=== PATIENT | female | born 1945 | race Caucasian/White ===

== ENCOUNTER 2019-11-09 15:05 | Emergency (ER) | payer MEDICARE, OTHER, SELFPAY ==
[2019-11-09] VITALS (13 sets, daily range): BP systolic 117–191; BP diastolic 8–96; PULSE 70–100; RESP 14–30; TEMP 36.7; O2SAT 95–100
--- NOTE | 2019-11-09 15:14 | DI.RAD.S_ITS ---
PROCEDURE: XR CHEST 1V INDICATIONS: chest pain TECHNIQUE: One view of the chest was acquired. COMPARISON: [facility], , CHEST 2 VIEW, 09/11/2016, 13:55. FINDINGS: Surgical changes and devices: None. Lungs and pleura: Lungs are clear. No pleural effusions or pneumothorax. Mediastinum: Mediastinal contours appear normal. Heart size is normal. Bones and chest wall: No suspicious bony lesions. Overlying soft tissues appear unremarkable. IMPRESSION: No acute cardiopulmonary abnormalities or focal airspace disease. Dictated by: Andrei Velasco M.D. on 11/09/2019 at 15:59 Approved by: Andrei Velasco M.D. on 11/09/2019 at 16:00
--- NOTE | 2019-11-09 15:29 | ED.CHESTPAIN ---
HPI - Chest Pain General Chief Complaint: Chest Pain Stated Complaint: SOB, Chest Pain Time Seen by Provider: 11/09/19 15:09 Source: patient Mode of arrival: Ambulatory Limitations: no limitations History of Present Illness HPI narrative: 74-year-old female. Otherwise healthy. Does not take any medications. Approximately 4-5 days ago started noticing dyspnea on exertion and a sharp retrosternal chest pain on exertion. Chest pain does not seem to be associated with palpation or movement or eating. She also noticed that climbing stairs in her house she has become short of breath. No swelling in her lower extremities. Contact her primary provider who advised to come the emergency department. Related Data Previous Rx's Medication Instructions Recorded nitroglycerin 0.4 mg SL Q5M PRN #30 tab 11/09/19 Allergies Allergy/AdvReac Type Severity Reaction Status Date / Time No Known Drug Allergies Allergy Verified 11/09/19 15:17 Review of Systems Constitutional Constitutional: Denies fever(s) and Denies headache(s) ENT Ears, Nose, Mouth, and Throat: Denies headache(s) Cardiovascular Cardiovascular: Reports chest pain, Denies leg edema, Denies dyspnea and Reports dyspnea on exertion Respiratory Respiratory: Denies dyspnea and Reports dyspnea on exertion Gastrointestinal Gastrointestinal: Reports abdominal pain, Denies nausea and Denies vomiting Genitourinary Genitourinary: Denies dysuria and Denies vaginal discharge Musculoskeletal Musculoskeletal: Denies myalgias and Denies arthralgias Integumentary/Breasts Skin/Breast: Denies lesions and Denies rash Neurologic Neurologic: Denies behavioral changes and Denies headache(s) Psychiatric Psychiatric: Denies behavioral changes Hematologic/Lymphatic Hematologic/Lymphatic: Denies easy bleeding and Denies easy bruising Patient History Medical History Pre-syncope (Inactive) Social History Smoking Status: Former smoker Smoking Status: Former smoker alcohol intake frequency: 0-2 drinks per day Substance Use Type: does not use Exam Initial Vital Signs Initial Vital Signs: Vital Signs Temperature 98.1 F 11/09/19 15:14 Pulse Rate 80 11/09/19 15:14 Respiratory Rate 14 11/09/19 15:14 Blood Pressure 191/96 H 11/09/19 15:14 Pulse Oximetry 98 11/09/19 15:14 Const General: cooperative and comfortable Limitations: mental status not altered Resp Effort & Inspection: normal respiratory effort Auscultation: clear to auscultation bilaterally Cardio Rate: regular rate Rhythm: regular rhythm GI Inspection: non-distended Palpation: soft, No firm and No tender Skin Lesions: no lesions Rashes: no rashes Neuro General: alert, awake and oriented x3 Cognition: normal cognition Speech: speech normal Gait: normal gait Extrem General: normal to inspection and capillary refill normal Psych Appearance: grossly normal and well kempt Scores HEART Score Heart Score history: Moderately Suspicious Heart Score EKG: Normal Heart Score Age: > or = 65 years old Heart Score risk factors: No known risk factors Heart Score troponin: < or = to normal limit Heart Score Total: 3 Course Orders Ordered: ED Orders 11/09/19 15:14 XR chest 1V Stat EKG-12 Lead Stat 11/09/19 15:21 Complete Blood Count AUTO DIFF Stat Comprehensive Metabolic Panel Stat Lipase Stat Partial Thromboplastin Time Stat Prothrombin Time INR Stat Troponin & CK Cardiac Panel Stat 11/09/19 17:22 Troponin I Stat Nitroglycerin (Nitrostat) 0.4 mg SL [id number] PRN PRN Reason: Chest Pain Last Admin: 11/09/19 15:42 Dose: 0.4 mg Documented by: RACQUEL Discontinued Medications Aspirin (Aspirin Ec) 243 mg PO NOW ONE Stop: 11/09/19 15:19 Last Admin: 11/09/19 15:42 Dose: 243 mg Documented by: RACQUEL Vital Signs Vital signs: Vital Signs - 8 hr 11/09/19 15:14 11/09/19 15:16 11/09/19 15:42 Temperature 98.1 F Pulse Rate 80 81 78 Respiratory Rate 14 16 Blood Pressure 191/96 H 148/78 H Blood Pressure [Right Arm] 165/95 H Pulse Oximetry 98 99 11/09/19 15:45 11/09/19 15:46 11/09/19 15:48 Temperature Pulse Rate 100 H 100 H 95 H Respiratory Rate 23 16 15 Blood Pressure Blood Pressure [Right Arm] 132/86 138/88 132/8 L Pulse Oximetry 96 97 97 11/09/19 16:00 11/09/19 16:15 11/09/19 16:31 Temperature Pulse Rate 82 78 71 Respiratory Rate 16 16 16 Blood Pressure Blood Pressure [Right Arm] 123/73 132/70 135/84 Pulse Oximetry 95 98 100 11/09/19 16:45 11/09/19 17:00 11/09/19 17:16 Temperature Pulse Rate 74 76 76 Respiratory Rate 30 H 28 H 16 Blood Pressure Blood Pressure [Right Arm] 127/79 117/81 136/70 Pulse Oximetry 98 96 MDM - Chest Pain Lab Data Attestation: I reviewed the patient's lab results. Result diagrams: 11/09/19 15:21 11/09/19 15:21 Labs: Lab Results 11/09/19 11/09/19 11/09/19 Range/Units 15:21 15:21 15:21 WBC 8.3 (4.5-11.0) X10^3/uL RBC 4.44 (4.0-5.2) X10^6/uL Hgb 14.2 (12.0-16.0) g/dL Hct 41.9 (36-46) % MCV 94.3 (80-100) fL MCH 31.9 (26-34) PG MCHC 33.8 (30-36) % RDW 13.5 (11.6-14.8) % Plt Count 288 (150-400) X10^3/uL Neut % (Auto) 65.2 (50-75) % Lymph % (Auto) 27.1 (25-40) % Latimer % (Auto) 6.8 (3-14) % Eos % (Auto) 0.6 L (2-4) % Baso % (Auto) 0.3 (0-2) % Neut # (Auto) 5400 (3918-7929) /uL Lymph # (Auto) 2300 (1055-6477) /uL Latimer # (Auto) 600 (0-900) /uL Eos # (Auto) 0 (0-450) /uL Baso # (Auto) 0 (0-100) /uL PT 11.6 (10.1-12.7) SECONDS INR 1.0 (0.9-1.3) APTT 31 (26.4-36.2) SECONDS Sodium 137 (137-145) mmol/L Potassium 4.2 (3.4-5.1) mmol/L Chloride 101 (98-107) mmol/L Carbon Dioxide 27 (22-32) mmol/L BUN 11 (7-17) mg/dL Creatinine 0.60 (0.52-1.04) mg/dL Estimated GFR > 60.0 (>60) mL/min BUN/Creatinine Ratio 18.3 (6-22) Glucose 100 (80-110) mg/dL Calcium 10.1 (8.4-10.2) mg/dL Total Bilirubin 0.5 (0.2-1.3) mg/dL AST 29 (14-36) IU/L ALT 23 (<35) IU/L Alkaline Phosphatase 88 (38-126) U/L Total Creatine Kinase 75 (30-135) U/L CK-MB (CK-2) TNP CK-MB (CK-2) Rel Index TNP Troponin I < 0.012 (0.01-0.034) ng/mL Total Protein 8.1 (6.3-8.2) g/dL Albumin 4.8 (3.5-5.0) g/dL Globulin 3.3 (1.7-4.1) g/dL Albumin/Globulin Ratio 1.5 (1.0-2.8) Lipase 54 (23-300) U/L 11/09/19 Range/Units 17:22 WBC (4.5-11.0) X10^3/uL RBC (4.0-5.2) X10^6/uL Hgb (12.0-16.0) g/dL Hct (36-46) % MCV (80-100) fL MCH (26-34) PG MCHC (30-36) % RDW (11.6-14.8) % Plt Count (150-400) X10^3/uL Neut % (Auto) (50-75) % Lymph % (Auto) (25-40) % Latimer % (Auto) (3-14) % Eos % (Auto) (2-4) % Baso % (Auto) (0-2) % Neut # (Auto) (6323-1996) /uL Lymph # (Auto) (4124-8855) /uL Latimer # (Auto) (0-900) /uL Eos # (Auto) (0-450) /uL Baso # (Auto) (0-100) /uL PT (10.1-12.7) SECONDS INR (0.9-1.3) APTT (26.4-36.2) SECONDS Sodium (137-145) mmol/L Potassium (3.4-5.1) mmol/L Chloride (98-107) mmol/L Carbon Dioxide (22-32) mmol/L BUN (7-17) mg/dL Creatinine (0.52-1.04) mg/dL Estimated GFR (>60) mL/min BUN/Creatinine Ratio (6-22) Glucose (80-110) mg/dL Calcium (8.4-10.2) mg/dL Total Bilirubin (0.2-1.3) mg/dL AST (14-36) IU/L ALT (<35) IU/L Alkaline Phosphatase (38-126) U/L Total Creatine Kinase (30-135) U/L CK-MB (CK-2) CK-MB (CK-2) Rel Index Troponin I < 0.012 (0.01-0.034) ng/mL Total Protein (6.3-8.2) g/dL Albumin (3.5-5.0) g/dL Globulin (1.7-4.1) g/dL Albumin/Globulin Ratio (1.0-2.8) Lipase (23-300) U/L Imaging Data Chest x-ray: Radiologist's Impression: [address] [address] XRay Report Signed Patient: Patt Clay R#: [id number] : 7Acct:[id number] Age/Sex: 74 / FDate of Service: 11/09/19 Loc: ED Accession Number: [id number] Procedure: XR chest 1V Ordering Provider: Jese Jenkins D.O. PROCEDURE: XR CHEST 1V INDICATIONS: chest pain TECHNIQUE: One view of the chest was acquired. COMPARISON: [facility], , CHEST 2 VIEW, 09/11/2016, 13:55. FINDINGS: Surgical changes and devices: None. Lungs and pleura: Lungs are clear. No pleural effusions or pneumothorax. Mediastinum: Mediastinal contours appear normal. Heart size is normal. Bones and chest wall: No suspicious bony lesions. Overlying soft tissues appear unremarkable. IMPRESSION: No acute cardiopulmonary abnormalities or focal airspace disease. Dictated by: Andrei Velasco M.D. on 11/09/2019 at 15:59 Approved by: Andrei Velasco M.D. on 11/09/2019 at 16:00 ECG Data Attestation: I personally reviewed and interpreted this ECG as follows: Prior ECG tracings: not available for review Interpretation: Sinus rhythm Ventricular rate is 79 Incomplete right bundle-branch block Normal QRS Normal QTC No ST T wave changes MDM Narrative Medical decision making narrative: Nonspecific changes on the EKG, chest x-ray is negative. Low risk heart score. Patient's medical record shows that Dr. Samuel is her primary provider however I called him and he stated that he is not seen her. He does know her . I was able to talk with the office and schedule the patient for a follow-up at 0200 hours this Friday. They can discuss stress testing. I did discuss this with the patient. I did discuss risks and benefits. Patient would like to go home. We did discuss return precautions. Will send home with nitroglycerin. She expressed understanding and agreement plan. Discharge Plan Departure Patient Disposition: Home Clinical Impression: Chest pain Qualifiers: Chest pain type: unspecified Qualified Code(s): R07.9 - Chest pain, unspecified Instructions: DI for Angina Activity Restrictions/Additional Instructions: You have a follow-up this FridayNovember 12 at 2PM hours at the [facility]. Their phone numbers [phone]. This appointment is with Dr. Samuel. Until then you have no restrictions on your activities except avoiding activities that make her symptoms worse. Return to the emergency department for any new or worsening symptoms Prescriptions: New nitroglycerin 0.4 mg tablet, sublingual 0.4 mg SL Q5M PRN (Reason: chest pain) Qty: 30 RF: 0 Referrals: Bj Samuel MD [Primary Care Provider] -
[2019-11-09 15:33] LABS: Add Manual Diff / Slide Review NO; Basophils Absolute Auto 0 /uL (0-100); Basophils Percent Auto 0.3 % (0-2); Eosinophils Absolute Auto 0 /uL (0-450); Eosinophils Percent Auto 0.6 % (2-4); Hematocrit 41.9 % (36-46); Hemoglobin 14.2 g/dL (12.0-16.0); Lymphocytes Absolute Auto 2300 /uL (1100-4500); Lymphocytes Percent Auto 27.1 % (25-40); Mean Corpuscular HGB Conc 33.8 % (30-36); Mean Corpuscular Hemoglobin 31.9 PG (26-34); Mean Corpuscular Volume 94.3 fL (80-100); Monocytes Absolute Auto 600 /uL (0-900); Monocytes Percent Auto 6.8 % (3-14); Neutrophils Absolute Auto 5400 /uL (1500-7000); Neutrophils Percent Auto 65.2 % (50-75); Platelet Count 288 X10^3/uL (150-400); Red Blood Cell Count 4.44 X10^6/uL (4.0-5.2); Red Cell Distribution Width 13.5 % (11.6-14.8); White Blood Cell Count 8.3 X10^3/uL (4.5-11.0)
[2019-11-09 15:40] LABS: Prothrombin Time 11.6 SECONDS (10.1-12.7)
[2019-11-09] MEDS: NITROGLYCERIN 0.4 MG SL TAB SL (15:42)
[2019-11-09] MEDS: ASPIRIN EC 81 MG TABLET 243 MG PO (15:42)
[2019-11-09 15:43] LABS: PTT Partial Thromboplastin Tim 31 SECONDS (26.4-36.2)
[2019-11-09 15:44] LABS: Alanine Aminotransferase 23 IU/L (<35); Albumin 4.8 g/dL (3.5-5.0); Albumin Globulin Ratio 1.5 (1.0-2.8); Alkaline Phosphatase 88 U/L (38-126); Aspartate Aminotransferase 29 IU/L (14-36); BUN Creatinine Ratio 18.3 (6-22); Bilirubin Total 0.5 mg/dL (0.2-1.3); Blood Urea Nitrogen 11 mg/dL (7-17); Calcium 10.1 mg/dL (8.4-10.2); Carbon Dioxide 27 mmol/L (22-32); Chloride 101 mmol/L (98-107); Creatine Kinase 75 U/L (30-135); Estimated Glomerular Filt Rate > 60.0 mL/min (>60); Globulin 3.3 g/dL (1.7-4.1); Glucose 100 mg/dL (80-110); HEMOLYSIS < 15 (0-50); Lipase 54 U/L (23-300); Potassium 4.2 mmol/L (3.4-5.1); Sodium 137 mmol/L (137-145); Total Protein 8.1 g/dL (6.3-8.2)
--- NOTE | 2019-11-09 15:48 | PC.NURSE ---
no changes with substernal pinching, but now with headache.
[2019-11-09 15:57] LABS: Troponin I < 0.012 ng/mL (0.01-0.034)
--- NOTE | 2019-11-09 17:24 | PC.NURSE ---
for repeat trop. pain free at this time
[2019-11-09 17:57] LABS: Troponin I < 0.012 ng/mL (0.01-0.034)
== END 2019-11-09 18:25 | disposition home or self-care (01) ==
PROVIDERS: Emergency Provider Emergency Medicine; PCP Family Medicine; Referring Provider Family Medicine
DX: R07.9 Chest pain, unspecified (principal); R06.02 Shortness of breath
CPT/HCPCS: 36415; 71045; 80053; 82550; 83690; 84484; 85025; 85610; 85730; 93005; 99284; 99285

== ENCOUNTER → 2020-06-01 13:37 | Outpatient (CLI) | payer MEDICARE, OTHER, SELFPAY ==
--- NOTE | 2020-06-01 | DI.RAD.S_ITS ---
PROCEDURE: XR FOOT RT MIN 3V INDICATIONS: RIGHT FOOT PAIN TECHNIQUE: 3 views of the foot were acquired. COMPARISON: None. FINDINGS: Bones: No fractures or dislocations. No suspicious bony lesions. Note is made of a slight degree of periarticular erosions both at the medial and lateral aspect of the 1st metatarsal head. Mild soft tissue prominence is noted over the medial 1st metatarsal head also. Soft tissues: No tibiotalar joint effusion. Achilles tendon appears normal. IMPRESSION: Suspect mild gout at the 1st MTP joint, with associated medial soft tissue swelling. Dictated by: Arley Alvarado M.D. on 06/01/2020 at 14:12 Approved by: Arley Alvarado M.D. on 06/01/2020 at 14:14
== END ==
PROVIDERS: PCP Family Medicine; Referring Provider Family Medicine; Visit Provider Family Medicine
DX: M79.671 Pain in right foot (principal)
CPT/HCPCS: 73630

== ENCOUNTER → 2020-11-02 16:13 | Outpatient (CLI) | payer OTHER, SELFPAY ==
--- NOTE | 2020-11-02 | DI.RAD.S_ITS ---
PROCEDURE: XR WRIST RT MIN 3V INDICATIONS: RIGHT WRIST PAIN TECHNIQUE: 4 views of the wrist were acquired. COMPARISON: None. FINDINGS: Bones: No fractures or dislocations. No suspicious bony lesions. Scaphoid view: Scaphoid appears intact. Soft tissues: No suspicious soft tissue calcifications. IMPRESSION: No acute osseous abnormalities. Dictated by: Tam Vazquez M.D. on 11/02/2020 at 16:53 Approved by: Tam Vazquez M.D. on 11/02/2020 at 16:54
== END ==
PROVIDERS: PCP Family Medicine; Referring Provider Family Medicine; Visit Provider Family Medicine
DX: M25.531 Pain in right wrist (principal)
CPT/HCPCS: 73110

== ENCOUNTER → 2021-03-02 17:37 | Outpatient (CLI) | payer MEDICARE, OTHER, SELFPAY ==
--- NOTE | 2021-03-02 17:39 | DI.MRI.S_ITS ---
PROCEDURE: MR FOOT RT WO CON INDICATIONS: PAIN IN RIGHT FOOT TECHNIQUE: Noncontrast sagittal T1 spin echo and T2 fast spin echo with fat saturation, long-axis T1 spin echo and T2 fast spin echo with fat saturation, short-axis T1 spin echo and T2 fast spin echo with fat saturation through the forefoot. COMPARISON: [facility], CR, XR FOOT RT MIN 3V, 06/01/2020, 13:44. FINDINGS: Image quality: Excellent. Bones and joints: No bone marrow contusions or metatarsal stress fractures. There is moderate hallux valgus. Mild to moderate degenerative changes are seen at the 1st metatarsophalangeal joint and the metatarsal sesamoid articulations. A congenitally bipartite medial hallux sesamoid is present. Mild irregularity at the medial aspect of the 1st metatarsal head may represent degenerative changes or a small chronic erosion. Mild scattered interphalangeal joint degenerative changes are seen. Soft tissues: The visualized plantar foot muscles demonstrate normal signal and bulk. Visualized flexor and extensor tendons appear intact, without tenosynovitis. The distal insertions of the peroneus brevis and longus tendons appear intact. The principal Lisfranc ligament appears intact. No intermetatarsal soft tissue mass is seen. Sagittal images demonstrate no evidence for plantar plate tears. A lobular ganglion cyst is seen in the 2nd toe adjacent to the proximal interphalangeal joint measuring approximately 1.6 x 1.1 x 0.8 cm. Additional small ganglion cyst is seen at the 1st metatarsophalangeal joint measuring 1.0 x 0.5 x 0.8 cm. Mild pressure related changes are seen in the subcutaneous tissues adjacent to the 1st and 5th metatarsal heads. IMPRESSION: 1. Moderate hallux valgus. Moderate degenerative changes at the 1st metatarsophalangeal joint and metatarsal sesamoid articulations. Mild irregularity at the medial aspect of the 1st metatarsal head may be related to degenerative changes or a chronic small erosion. No additional signs of an inflammatory arthritis are seen. No active gouty tophus is identified. 2. Lobular ganglion cysts at the volar aspect of the 2nd metatarsophalangeal joint measuring up to 1.6 cm and at the dorsal lateral aspect of the 1st metatarsophalangeal joint measuring up to 1.0 cm. Dictated by: Estuardo Regalado M.D. on 03/05/2021 at 10:05 Approved by: Estuarod Regalado M.D. on 03/05/2021 at 10:19
== END ==
PROVIDERS: PCP Family Medicine; Referring Provider Family Medicine; Visit Provider Family Medicine
DX: M79.671 Pain in right foot (principal); M20.11 Hallux valgus (acquired), right foot; M67.471 Ganglion, right ankle and foot
CPT/HCPCS: 73718

== ENCOUNTER → 2022-06-11 16:39 | Outpatient (CLI) | payer MEDICARE, OTHER, SELFPAY ==
[2022-06-11 18:01] LABS: Add Manual Diff / Slide Review NO; Basophils Absolute Auto 0 /uL (0-100); Basophils Percent Auto 0.5 % (0-2); Eosinophils Absolute Auto 200 /uL (0-450); Eosinophils Percent Auto 2.3 % (2-4); Hematocrit 40.5 % (36-46); Hemoglobin 13.8 g/dL (12.0-16.0); Lymphocytes Absolute Auto 3200 /uL (1100-4500); Mean Corpuscular HGB Conc 33.9 % (30-36); Mean Corpuscular Hemoglobin 31.8 PG (26-34); Mean Corpuscular Volume 93.7 fL (80-100); Monocytes Absolute Auto 600 /uL (0-900); Monocytes Percent Auto 7.7 % (3-14); Neutrophils Absolute Auto 3600 /uL (1500-7000); Neutrophils Percent Auto 47.5 % (50-75); Platelet Count 281 X10^3/uL (150-400); Red Blood Cell Count 4.33 X10^6/uL (4.0-5.2); Red Cell Distribution Width 13.7 % (11.6-14.8); White Blood Cell Count 7.6 X10^3/uL (4.5-11.0)
[2022-06-11 18:08] LABS: Alanine Aminotransferase 20 IU/L (<35); Albumin 4.5 g/dL (3.5-5.0); Albumin Globulin Ratio 1.4 (1.0-2.8); Alkaline Phosphatase 80 U/L (38-126); Aspartate Aminotransferase 28 IU/L (14-36); BUN Creatinine Ratio 15.2 (6-22); Bilirubin Total 0.4 mg/dL (0.2-1.3); Blood Urea Nitrogen 10 mg/dL (7-17); Calcium 9.3 mg/dL (8.4-10.2); Carbon Dioxide 27 mmol/L (22-32); Chloride 102 mmol/L (98-107); Estimated Glomerular Filt Rate > 60 mL/min (>60); Globulin 3.2 g/dL (1.7-4.1); Glucose 86 mg/dL (80-110); HEMOLYSIS < 15 (0-50); Potassium 4.1 mmol/L (3.4-5.1); Sodium 138 mmol/L (137-145); Total Protein 7.7 g/dL (6.3-8.2); Uric Acid 4.3 mg/dL (2.5-6.2)
[2022-06-11 18:12] LABS: High Sensitivity CRP - Cardiac < 0.3 mg/L (1.0-3.0)
[2022-06-11 18:13] LABS: Rheumatoid Factor < 8.6 IU/mL (<12.0)
[2022-06-11 18:43] LABS: Erythrocyte Sedimentation Rate 7 MM/HR (0-20)
[2022-06-11 18:44] LABS: Thyroid Stimulating Hormone 2.59 uIU/mL (0.47-4.68)
[2022-06-13 17:36] LABS: SS A Ro Sjogrens Antibody < 0.2 AI (0.0-0.9); SS B La Sjogrens Antibody < 0.2 AI (0.0-0.9)
[2022-06-15 14:08] LABS: ANA Screen, IFA Negative (.)
[2022-06-20 16:40] LABS: HLA B27 Negative (.)
== END ==
PROVIDERS: PCP Family Medicine; Referring Provider Ophthalmology; Visit Provider Ophthalmology
DX: H44.111 Panuveitis, right eye (principal)
CPT/HCPCS: 36415; 80053; 81374; 84443; 84550; 85025; 85651; 86038; 86140; 86235; 86430

== ENCOUNTER → 2025-03-28 16:45 | Outpatient (CLI) | payer MEDICARE, OTHER, SELFPAY ==
--- NOTE | 2025-03-28 16:46 | DI.MG.S_ITS ---
MM screening mammo BI: 03/28/2025. BI-RADS: 2 CLINICAL: 80-year old female for bilateral screening mammogram. Tyrer-Cuzick lifetime risk of 4.6%. Current reported family history of breast cancer: mother. The patient has bilateral implants. PRIOR EXAMS: No prior examinations available. This is a baseline mammogram. MAMMOGRAPHY TECHNIQUE: 2D and 3D (tomosynthesis) digital mammographic views obtained, with additional images as needed for full coverage. Current study was also evaluated with a Computer Aided Detection (CAD) system. DENSITY C. The breasts are heterogeneously dense, which may obscure small masses. IMPLANTS Right: There is a retropectoral saline implant that appears intact. MAMMOGRAPHY FINDINGS Right: Saline implant on the right. Bilateral: Diffuse bilateral silicone granulomas, which obscure underlying breast tissue. There are no suspicious masses, calcifications, or other findings in the breast. IMPRESSION: * No evidence of malignancy with benign findings. RECOMMENDATIONS Bilateral * Annual screening mammography. OVERALL ASSESSMENT CATEGORY BI-RADS-2: Benign. The [employer] recommends annual screening mammography beginning at age 40 for women with average risk of breast cancer. ELECTRONICALLY SIGNED: Estuardo Regalado M.D. on 03/29/2025 at 10:54:04 AM PT
== END ==
PROVIDERS: PCP Family Medicine; Referring Provider Family Medicine; Visit Provider Family Medicine
DX: Z12.31 Encounter for screening mammogram for malignant neoplasm of breast (principal); R92.333 Mammographic heterogeneous density, bilateral breasts; Z80.3 Family history of malignant neoplasm of breast; Z98.82 Breast implant status
CPT/HCPCS: 77063; 77067